=== PATIENT | male | born 1995 | race Caucasian/White ===

== ENCOUNTER 2020-07-01 21:52 | Emergency (ER) | payer SELFPAY ==
[~2020-07-01] VITALS: Ht 177.8 cm; Wt 104.3 kg
[2020-07-01 21:55] VITALS: Ht 177.8 cm; Wt 104.3 kg
[2020-07-01 23:05] VITALS: BP 147/106
== END 2020-07-01 23:05 | disposition home or self-care (01) ==
LOC: ED 21:52
DX: U07.1 COVID-19 (principal); B34.9 Viral infection, unspecified; R10.13 Epigastric pain
CPT/HCPCS: U0003